=== PATIENT | male | born 1970 | race Caucasian/White ===

== ENCOUNTER 2019-10-01 07:48 | Outpatient (CLI) | payer OTHER, SELFPAY ==
--- NOTE | 2019-10-01 08:19 | ECG_ITS ---
Measurements Intervals [place] Rate: 77 P: 31 GA: 154 QRS: 56 QRSD: 94 T: 14 QT: 370 QTc: 420 Interpretive Statements SINUS RHYTHM BASELINE ARTIFACT- V1 NORMAL ECG Electronically Signed On 10-01-2019 13:56:00 CDT by Drew Zaman D.O.
== END 2019-10-01 07:49 | disposition home or self-care (01) ==
PROVIDERS: PCP Family Medicine; Visit Provider Family Medicine
DX: I10 Essential (primary) hypertension (principal)
CPT/HCPCS: 93005

== ENCOUNTER 2020-01-24 17:34 | Outpatient (CLI) | payer OTHER, SELFPAY ==
--- NOTE | ~2020-01-24 | CT_ITS ---
EXAMINATION: CT abdomen pelvis wo con DATE: 01/24/2020 18:03 INDICATION: Left renal stone TECHNIQUE: Computed tomography (CT) of the abdomen and pelvis was performed without intravenous contr ast. The dose-length product was 370.10 mGy-cm. Automated exposure control and iterative reconstructi on technique were employed. COMPARISON: CT dated 01/18/2019 FINDINGS: Lung bases are unremarkable. Heart size normal. No significant pleural or pericardial effus ion. There is a 1.3 x 0.8 cm left UPJ stone with mild hydronephrosis. There are nonobstructing left renal stones in the lower pole. The liver, spleen, pancreas, adrenal glands are unremarkable. There is a pu nctate nonobstructing right renal stone. Gallbladder is present. Nonobstructive bowel gas pattern. No rmal appendix. Colonic diverticulosis without evidence for diverticulitis. No free air or free fluid. IMPRESSION: 1. Left UPJ stone measuring 1.3 cm craniocaudal x0.8 cm transverse causing mild left hydronephrosis. 2: Nonobstructing bilateral nephrolithiasis. Reviewed, dictated and finalized at location A.
== END 2020-01-24 17:35 | disposition home or self-care (01) ==
PROVIDERS: PCP Family Medicine; Visit Provider Urology
DX: N20.0 Calculus of kidney (principal)
CPT/HCPCS: 74176

== ENCOUNTER 2020-02-07 16:56 | Outpatient (CLI) | payer OTHER, SELFPAY ==
[2020-02-07 17:43] LABS: Prothrombin Time 13.3 Seconds (11.1-14.7)
[2020-02-07 17:44] LABS: Partial Thromboplastin Time 24.5 SECONDS (22.3-36.8)
== END 2020-02-07 16:57 | disposition home or self-care (01) ==
PROVIDERS: PCP Family Medicine; Visit Provider Urology
DX: N20.0 Calculus of kidney (principal)
CPT/HCPCS: 36415; 85610; 85730; 87086

== ENCOUNTER 2020-02-09 00:55 | Outpatient (CLI) | payer OTHER, SELFPAY ==
[2020-02-09 18:42] LABS: SARS-CoV-2 RNA PCR Negative
== END 2020-02-09 00:56 | disposition home or self-care (01) ==
LOC: ANHCOVIDDT 00:55
PROVIDERS: PCP Family Medicine; Visit Provider Urology
DX: Z01.812 Encounter for preprocedural laboratory examination (principal); Z20.828 Contact with and (suspected) exposure to other viral communicable diseases
CPT/HCPCS: 87635; C9803; U0003

== ENCOUNTER 2020-02-11 01:26 | Day surgery (SDC) | payer OTHER, SELFPAY ==
[2020-01-27 14:14] VITALS: BMI 29.1
--- NOTE | 2020-02-08 15:36 | PM.IMHP ---
H&P: HPI History of Present Illness Date/Time: 02/08/20 15:36 Chief complaint: left kidney stone Narrative: Jose Carlos Oliva is a 49 year old male with a remote history of urolithiasis recently developed left renal colic. CT imaging revealed a 13 by 8 mm left renal calculus. After discussion of therapeutic options he elected for cysto with left stent placement and left ESWL. He is aware of this risk of this procedure including, but not limited to, injury to the left kidney, failure to completely treat the stone, postoperative pain and hematuria. Review of Systems Cardiovascular: Cardiovascular: Denies chest pain, Denies lightheadedness, Denies palpitations and Denies dyspnea Respiratory: Respiratory: Denies dyspnea Gastrointestinal: Gastrointestinal: Denies diarrhea, Denies nausea and Denies vomiting Genitourinary: Genitourinary: Denies hematuria and Denies dysuria Endocrine: Endocrine: Denies palpitations PMFSH Past Medical History Medical History Colon cancer screening Diverticulosis Eczema Encounter for prostate cancer screening Encounter for wellness examination in adult Essential (primary) hypertension Fungal infection of toenail Hypothyroidism, unspecified Kidney stones Kidney stones Lateral epicondylitis of both elbows Microscopic hematuria Migraines Mixed hyperlipidemia Ureteral stone Surgical History Surgical History H/O umbilical hernia repair (~2018) H/O vasectomy (~2019) Family History Family History Mother Family history of malignant neoplasm of breast in first degree relative Asthma Macular degeneration Father Diabetes mellitus Heart disease Grandparent Cerebrovascular accident Cancer Sibling Asthma Diverticulosis Other Family history of malignant neoplasm Social History Social History Smoking status: Never smoker Alcohol intake: current Drinks per week: 1 Spiritual care concerns: No Meds Home Medications and Allergies Home Medications Medication Instructions Recorded Confirmed Type ketorolac 10 mg tablet 10 mg PO Q6H PRN 09/08/19 01/27/20 History meloxicam 15 mg tablet 15 mg PO DAILY PRN #30 tablet 09/08/19 01/27/20 Rx tamsulosin 0.4 mg capsule 0.4 mg PO DAILY #30 cap 09/08/19 01/27/20 Rx levothyroxine 75 mcg tablet 75 mcg PO DAILY #30 tablet 09/22/19 01/27/20 Rx lisinopril 20 mg tablet 10 mg PO DAILY #30 tablet 10/05/19 01/27/20 Rx terbinafine HCl 250 mg tablet 250 mg PO .COMPLEX #90 tablet 10/05/19 01/27/20 Rx Allergies Allergy/AdvReac Type Severity Reaction Status Date / Time Penicillins Allergy Unknown Rash Verified 01/27/20 14:15 hydrocodone AdvReac Mild n/v, rash Verified 01/27/20 14:15 Exam Const: General: no acute distress Resp: Effort & Inspection: normal respiratory effort GI: Inspection: non-distended GI Palp: No abdominal tenderness and No Guarding due to palpation present (GI) Auscultation: normal bowel sounds Assessment and Plan Assessment and plan (1) Left renal stone: Code(s): N20.0 - Calculus of kidney Status: Acute Assessment and Plan: Left ESWL
[2020-02-11] VITALS (7 sets, daily range): BP systolic 114–138; BP diastolic 76–93; PULSE 70–90; RESP 10–18; TEMP 36.1–36.6; O2SAT 98–100
--- NOTE | ~2020-02-11 | CT_ITS ---
EXAMINATION: CT abdomen pelvis wo con DATE: 02/11/2020 08:53 INDICATION: TECHNIQUE: Computed tomography (CT) of the abdomen and pelvis was performed without intravenous contr ast. Automated exposure control and iterative reconstruction technique were employed. Exam dose: 302 .24 mGy-cm total exam DLP. COMPARISON: None. FINDINGS: The lung bases are clear. Normal heart size. No pericardial or pleural effusion. The liver, spleen, pancreas, adrenal glands are unremarkable. No renal space occupying mass lesion is evident. There is a 5.3 mm wide by 10.5 mm vertical dimension left ureteral calculus in the distal left ureter to approximately S2 level, with moderately prominent proximal left hydroureteronephrosis. There are multiple stones in the lower pole of the left kidney. There are 2 pinpoint nonobstructing upper pole right renal calcifications. No right ureteral calculus or right-sided hydroureteronephrosis. The urinary bladder is unremarkable. There are numerous diverticula of the colon; no CT evidence of diverticulitis. Normal appendix. No cara wel obstruction, bowel wall thickening, pneumatosis or intraperitoneal free air. Included skeletal structures are unremarkable. IMPRESSION: 5.3 x 10 x 5 mm obstructing distal left ureteral calculus Bilateral nonobstructive nephrolithiasis Diverticulosis of the colon Reviewed, dictated and finalized at Location A. Reviewed, dictated and finalized at location A.
--- NOTE | ~2020-02-11 | XR_ITS ---
EXAMINATION: XR abdomen/kub 1V DATE: 02/11/2020 07:37 INDICATION: Left kidney stones. TECHNIQUE: A supine view of the abdomen on 2 radiographs was obtained. COMPARISON: CT abdomen and pelvis 01/24/2020 FINDINGS: There are no dilated loops of bowel. There is 6 mm and 4 mm stones in left kidney lower kerline e. IMPRESSION: 1. Left kidney stones. Reviewed, dictated and finalized at location B. IMPRESSION: 1. Left kidney stones.
--- NOTE | 2020-02-11 06:54 | WPDHPUPDATE1 ---
History and Physical Update Update Date/Time: 02/11/20 06:54 History and Physical has been reviewed, including an updated exam of the patient. There are NO changes in the patient's condition. Risks, benefits, and alternatives have been discussed and questions answered. Patient agrees to proceed with procedure.
[2020-02-11] MEDS: LACTATED RINGERS 1,000 ML 30 ML IV CONT ×3 (08:15→10:16)
--- NOTE | 2020-02-11 08:56 | WPDANESEPPF ---
Anes - Initial Pre Proc Eval Procedure: Operation Date: 02/11/20 09:30 Proposed Procedures p Left Extracorporeal Shock Wave Lithotripsy - Kirby Lynch MD Date/Time: 02/11/20 08:56 Surgeon: Kirby Lynch MD Pre Op Diagnosis: left kidney stone Patient Data Age: 49 Gender: M Height: 6 ft Weight: 99 kg Last Vital Signs Temp 36.6 C 02/11/20 08:00 Pulse 74 02/11/20 08:00 Resp 18 02/11/20 08:00 BP 126/87 02/11/20 08:00 Pulse Ox 100 02/11/20 08:00 Allergies Allergy/AdvReac Type Severity Reaction Status Date / Time Penicillins Allergy Unknown Rash Verified 02/11/20 08:33 hydrocodone AdvReac Mild n/v, rash Verified 02/11/20 08:33 Home Medications Medication Instructions Recorded Confirmed Type ketorolac 10 mg tablet 10 mg PO Q6H PRN 09/08/19 02/11/20 History meloxicam 15 mg tablet 15 mg PO DAILY PRN #30 tablet 09/08/19 02/11/20 Rx tamsulosin 0.4 mg capsule 0.4 mg PO DAILY #30 cap 09/08/19 02/11/20 Rx levothyroxine 75 mcg tablet 75 mcg PO DAILY #30 tablet 09/22/19 02/11/20 Rx lisinopril 20 mg tablet 10 mg PO DAILY #30 tablet 10/05/19 02/11/20 Rx terbinafine HCl 250 mg tablet 250 mg PO .COMPLEX #90 tablet 10/05/19 02/11/20 Rx Patient hx anesthesia problems: none Family hx anesthesia problems: none PMFSH Past Medical History Medical History Colon cancer screening Diverticulosis Eczema Encounter for prostate cancer screening Encounter for wellness examination in adult Essential (primary) hypertension Fungal infection of toenail Hypothyroidism, unspecified Kidney stones Kidney stones Lateral epicondylitis of both elbows Microscopic hematuria Migraines Mixed hyperlipidemia Ureteral stone Surgical History Surgical History H/O umbilical hernia repair (~2018) H/O vasectomy (~2018) Family History Family History Mother Family history of malignant neoplasm of breast in first degree relative Asthma Macular degeneration Father Diabetes mellitus Heart disease Grandparent Cerebrovascular accident Cancer Sibling Asthma Diverticulosis Other Family history of malignant neoplasm Social History Social History Smoking status: Never smoker Alcohol intake: current Drinks per week: 1 Spiritual care concerns: No Anes - Eval Final PreProcedure Day of Procedure 02/11/20 08:56 Patient weight: overweight Heart: regular rate and rhythm Lungs: clear to auscultation Airway: Mallampati scale class 1 Neurological: alert and oriented Last oral intake: >/= 8 hours ASA classification: II Emergent: no Anesthetic plan: proceed Anesthesia type and monitoring: general LMA and standard monitoring Informed Consent: The patient's anesthetic plan and its attendant risks and benefits were discussed with the patient/family/POA. Questions were solicited and answers provided to the satisfaction of the patient/family/POA.
[2020-02-11] MEDS: levoFLOXacin 500 MG/D5W 100 ML 500 MG/100 ML BAG 100 MG IVPB (09:29)
[2020-02-11] MEDS: KETOROLAC 30 MG/ML VIAL (*BKC) IV PUSH (10:07)
--- NOTE | 2020-02-11 10:14 | P.OP_ITS ---
Procedure Note - Detailed Date of procedure: 02/11/20 Pre-op diagnosis: left kidney stone Post-op diagnosis: same Procedure performed: 1. Cystoscopy, left retrograde pyelography. 2. Left ESWL. Description of procedure: The patient was brought to the operative suite where he was placed in the supine position on the Dornier lithotripter table. Flexible cystoscopy was undertaken with a 16F flexible cystoscopy. There were no urethral strictures. The prostatic uretehral estimated lenght was 1.5cm. There was no obstruction of the prostatic urethra with no median lobe enlargement. The bladder mucosa was normal and there was a single, orthotopic ureteral orifice bilaterally. A 0.035 glidewire was advanced into the left renal pelvis under fluoroscopy. An angiographic catheter was used to inject contrast in a retrograde fashion so as to outline the 7 mm stone overlying her the sacrum.. Thefocal point of the lithotriptor on a 7mm left mid-ureteral calculus. A total of 3000 shocks were delivered at a power setting of 5. The p atient tolerated the procedure well and was taken to the recovery room in good condition. Anesthesia: GLMA Surgeon: Kirby Lynch MD Estimated blood loss (mL): 0 Drains: No Packing: No Pathology: none sent Complications: No immediate complications Condition: stable Disposition: PACU
== END 2020-02-11 12:05 | disposition home or self-care (01) ==
PROVIDERS: PCP Family Medicine; Visit Provider Urology
PROC: (CPT 50590; principal; 2020-02-11 09:30)
DX: N20.1 Calculus of ureter (principal); I10 Essential (primary) hypertension; E03.9 Hypothyroidism, unspecified; E66.3 Overweight; Z68.29 Body mass index [BMI] 29.0-29.9, adult; Z88.0 Allergy status to penicillin; Z79.1 Long term (current) use of non-steroidal anti-inflammatories (NSAID); Z79.899 Other long term (current) drug therapy
CPT/HCPCS: 50590; 52000; 74018; 74176; A9270; C1769; C1887; J0131; J1100; J1885; J1956; J2250; J2405; J2704; J3010; J7030; J7120; Q9966

== ENCOUNTER 2020-02-21 11:30 | Outpatient (CLI) | payer OTHER, SELFPAY ==
--- NOTE | ~2020-02-21 | XR_ITS ---
XR abdomen/kub 1V 02/21/2020 11:53 INDICATION: Kidney stone TECHNIQUE: KUB COMPARISON: 02/11/2012 FINDINGS: Bowel gas pattern is normal. Moderate colonic fecal loading. There is no evidence of free a ir, mass, organomegaly, ascites or obstruction. No abnormal calculi are seen. The bones appear inta ct. IMPRESSION: 1: No acute abdominal abnormality identified. Reviewed, dictated and finalized at location A.
== END 2020-02-21 11:31 | disposition home or self-care (01) ==
LOC: ANHIMG 11:38
PROVIDERS: PCP Family Medicine; Visit Provider Urology
DX: N20.0 Calculus of kidney (principal)
CPT/HCPCS: 74018

== ENCOUNTER 2020-12-13 15:11 | Outpatient (CLI) | payer OTHER, SELFPAY ==
--- NOTE | ~2020-12-13 | CT_ITS ---
EXAMINATION: CT abdomen pelvis wo con EXAM DATE: 12/13/2020 16:11 INDICATION: Left flank pain. Nausea, vomiting. TECHNIQUE: Spiral CT of the abdomen and pelvis was performed without contrast. Axial, coronal and sag ittal images were reviewed. The dose-length product (DLP) for this examination was 427.63 mGy-cm. T he exposure was tailored according to patient size (auto mA exposure control), and iterative reconstr uction (ASIR) was used as additional dose reduction technique. Comparison is made to prior examinatio n from 02/11/2020. FINDINGS: There is a large left ureteropelvic junction stone measuring 11 x 7 x 16 mm, with moderate left-sided hydronephrosis only mild right nephric fat stranding. Other large left calyceal stones, or single connected stone casting the inferior moiety. No right nephrolithiasis. The prostate is unrem arkable. The bladder is unremarkable. The liver, spleen, adrenal glands and pancreas are unremarkable. The gallbladder is contracted but o therwise unremarkable. There is no retroperitoneal or pelvic lymphadenopathy. There is mild scatte red arteriosclerotic disease. The appendix is normal. There is moderate sigmoid, otherwise mild scattered colonic diverticulosis. There is no adjacent inflammatory change to suggest diverticulitis. The stomach and small bowel are u nremarkable. There is moderate amount of colonic stool. No free intraperitoneal gas. The heart i s normal in size. There are no pericardial or pleural effusions. The lung bases are unremarkable. There are no osteoblastic or osteolytic lesions identified. Compared to prior study, the mid left ureteral stone has passed. There has been increase in the stone burden of the left kidney compared to that exam. IMPRESSION: 1. Large left UPJ stone, moderate hydronephrosis. 2. Enlarged left nephrolithiasis. Reviewed, dictated and finalized at location B.
--- NOTE | ~2020-12-13 | XR_ITS ---
EXAMINATION: XR abdomen/kub 1V EXAM DATE: 12/13/2020 15:51 INDICATION: Left flank pain. History of kidney stones. TECHNIQUE: Frontal projection of the upper abdomen, frontal projection lower abdomen/pelvis for inter pretation. Comparison is made to prior examination from 02/21/2020. FINDINGS: There is moderate amount of colonic stool and gas obscuring the left renal contour. The le ft UPJ and casting left inferior calyceal stones are relatively low in density, but are identified an d indicated. Nonobstructive bowel gas pattern. There are mild bony degenerative changes. There is no organomegaly. IMPRESSION: Left UPJ, inferior moiety stones identified, indicated. Reviewed, dictated and finalized at location B.
== END 2020-12-13 15:12 | disposition home or self-care (01) ==
PROVIDERS: PCP Family Medicine; Visit Provider Nurse Practitioner Adult Health
DX: R10.9 Unspecified abdominal pain (principal); N20.2 Calculus of kidney with calculus of ureter
CPT/HCPCS: 74018; 74176

== ENCOUNTER 2020-12-15 00:23 | Day surgery (SDC) | payer OTHER, SELFPAY ==
[2020-12-14 16:31] VITALS: BMI 31.4
[2020-12-15] VITALS (7 sets, daily range): BP systolic 117–148; BP diastolic 80–90; PULSE 80–91; RESP 12–20; TEMP 36.6–36.8; O2SAT 94–99; BMI 31.8
--- NOTE | ~2020-12-15 | XR_ITS ---
XR abdomen/kub 1V 12/15/2020 08:47 INDICATION: ESWL. TECHNIQUE: KUB COMPARISON: Comparison to multiple prior studies sequentially, with oldest reviewed study dated 01/19. FINDINGS: Bowel gas pattern is normal. There is no evidence of free air, mass, organomegaly, ascites or obstruction. There are multiple clustered lower pole stones in the left kidney. The bones appear intact. IMPRESSION: 1: Left nephrolithiasis. Reviewed, dictated and finalized at location A. IMPRESSION: 1: Left nephrolithiasis.
--- NOTE | 2020-12-15 07:41 | ECG_ITS ---
Measurements Intervals [place] Rate: 84 P: 31 PA: 171 QRS: 45 QRSD: 95 T: 22 QT: 347 QTc: 411 Interpretive Statements SINUS RHYTHM NONSPECIFIC T-WAVE ABNORMALITY- INFERIOR LEADS BASELINE ARTIFACT- II, III BORDERLINE ECG Electronically Signed On 12-15-2020 10:43:36 CDT by Drew Zaman D.O.
[2020-12-15] MEDS: LACTATED RINGERS 1,000 ML 30 ML IV CONT ×2 (09:24→13:48)
--- NOTE | 2020-12-15 09:40 | SUR.PREOP ---
0940- Notified patient and procedure will be delayed. and patient verbalized understanding.
--- NOTE | 2020-12-15 09:43 | WPDANESEPPF ---
Anes - Initial Pre Proc Eval Procedure: Operation Date: 12/15/20 10:30 Proposed Procedures p Left Ureteral Extracorporeal Shock Wave Lithotripsy - Kirby Lynch MD Date/Time: 12/15/20 09:43 Surgeon: Kirby Lynch MD Pre Op Diagnosis: left ureteral stone Patient Data Age: 49 Gender: M Height: 1.8 m Weight: 103.7 kg Last Vital Signs Temp 36.8 C 12/15/20 09:25 Pulse 91 12/15/20 09:25 Resp 20 12/15/20 09:25 BP 132/89 12/15/20 09:25 Pulse Ox 99 12/15/20 09:25 Allergies Allergy/AdvReac Type Severity Reaction Status Date / Time Penicillins Allergy Mild Rash Verified 12/15/20 08:56 Home Medications Medication Instructions Recorded Confirmed Type meloxicam 15 mg tablet 15 mg PO DAILY PRN #30 tablet 03/07/20 12/15/20 Rx levothyroxine 75 mcg tablet 75 mcg PO DAILY #90 tablet 04/10/20 12/14/20 Rx tamsulosin 0.4 mg capsule 0.4 mg PO DAILY #90 cap 04/10/20 12/15/20 Rx losartan 50 mg tablet 50 mg PO DAILY #90 tablet 06/05/20 12/15/20 Rx doxycycline hyclate 100 mg PO BID 12/14/20 12/15/20 History Laboratory Tests 12/15/20 09:07 PT Pending INR Pending APTT Pending Patient hx anesthesia problems: none Family hx anesthesia problems: none PMFSH Past Medical History Medical History (Updated 05/31/20 @ 07:40 by Tavo Lechuga MD) Colon cancer screening COVID-19 Diverticulosis Eczema Encounter for prostate cancer screening Encounter for wellness examination in adult Essential (primary) hypertension Fungal infection of toenail Hypothyroidism, unspecified Kidney stones Kidney stones Lateral epicondylitis of both elbows Microscopic hematuria Migraines Mixed hyperlipidemia Seasonal allergic rhinitis Ureteral stone Surgical History Surgical History H/O umbilical hernia repair (~2018) H/O vasectomy (~2018) Family History Family History Mother Family history of malignant neoplasm of breast in first degree relative Asthma Macular degeneration Father Diabetes mellitus Heart disease Grandparent Cerebrovascular accident Cancer Sibling Asthma Diverticulosis Other Family history of malignant neoplasm Social History Social History Smoking status: Never smoker Alcohol intake: current Drinks per week: 1 Substance use: never Substance use type: does not use Living arrangements: with family Spiritual care concerns: No Anes - Eval Final PreProcedure Day of Procedure 12/15/20 09:43 Patient weight: overweight Heart: regular rate and rhythm Lungs: clear to auscultation and normal air movement Airway: Mallampati scale class II Neurological: alert and oriented Last oral intake: >/= 8 hours ASA classification: II Emergent: no Anesthetic plan: proceed Anesthesia type and monitoring: general LMA Informed Consent: The patient's anesthetic plan and its attendant risks and benefits were discussed with the patient/family/POA. Questions were solicited and answers provided to the satisfaction of the patient/family/POA.
[2020-12-15 09:44] LABS: Prothrombin Time 13.3 Seconds (11.1-14.7)
[2020-12-15 09:45] LABS: Partial Thromboplastin Time 26.4 SECONDS (22.3-36.8)
--- NOTE | 2020-12-15 12:40 | WPDHPUPDATE1 ---
History and Physical Update Update Date/Time: 12/15/20 12:40 History and Physical has been reviewed, including an updated exam of the patient. There are NO changes in the patient's condition. Risks, benefits, and alternatives have been discussed and questions answered. Patient agrees to proceed with procedure.
[2020-12-15] MEDS: ceFAZolin 2 GM/D5W 50 ML 2 GM/50 ML BAG IVPB (13:07)
--- NOTE | 2020-12-15 13:40 | W.PM.PROC2 ---
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 10 x 11 mm left renal pelvic stone 2. Partial staghorn calculus lower pole calyx Description of Procedure The patient was brought to the operative suite where he was placed in the supine position on the Dornier lithotripsy table. The focal point of the lithotripter was placed at a [id number] left renal pelvic calculus. A total of 2500 shocks were delivered at a power setting of 4. There appeared to be good fragmentation of the stone. The patient tolerated the procedure well and was taken to the recovery room in good condition. We did not treat the partial staghorn stone in his left lower pole. Implants None Estimated Blood Loss 0 Drains No Packing No Pathology none sent Complications No immediate complications Condition stable Disposition PACU
== END 2020-12-15 14:56 | disposition home or self-care (01) ==
PROVIDERS: PCP Family Medicine; Visit Provider Urology
PROC: (CPT 50590; principal; 2020-12-15 10:30)
DX: N20.0 Calculus of kidney (principal); E03.9 Hypothyroidism, unspecified; Z86.16 Personal history of COVID-19; K57.90 Diverticulosis of intestine, part unspecified, without perforation or abscess without bleeding; M77.12 Lateral epicondylitis, left elbow; M77.11 Lateral epicondylitis, right elbow; R31.29 Other microscopic hematuria; E78.2 Mixed hyperlipidemia; R11.2 Nausea with vomiting, unspecified; I10 Essential (primary) hypertension
CPT/HCPCS: 50590; 36415; 74018; 85610; 85730; 93005; J0690; J1100; J2250; J2405; J2704; J3010; J7120

== ENCOUNTER 2020-12-19 16:06 | Outpatient (CLI) | payer OTHER, SELFPAY ==
--- NOTE | ~2020-12-19 | XR_ITS ---
EXAMINATION: XR chest 2V 12/19/2020 16:27 INDICATION: Acute bronchitis PROCEDURE: PA and lateral views of the chest COMPARISON: No prior studies for comparison. FINDINGS: The lungs are clear. The cardiomediastinal silhouette is within normal limits. There are no pleural effusions. There is no pneumothorax suspected. IMPRESSION: 1: NO ACUTE CARDIOPULMONARY DISEASE. Reviewed, dictated and finalized at location B.
--- NOTE | ~2020-12-19 | XR_ITS ---
EXAMINATION: XR abdomen/kub 1V DATE: 12/19/2020 16:27 INDICATION: Left flank pain. TECHNIQUE: A supine view of the abdomen on 2 radiographs was obtained. COMPARISON: CT abdomen and pelvis 12/14/2019 FINDINGS: There are no dilated loops of bowel. Faintly visible are stones in the left kidney lower po le and in the proximal left ureter. The stone in proximal left ureter measures 17 x 7 mm. IMPRESSION: 1. Stones in the left kidney and proximal left ureter. Reviewed, dictated and finalized at location A.
== END 2020-12-19 16:07 | disposition home or self-care (01) ==
LOC: ANHIMG 16:09
PROVIDERS: PCP Family Medicine; Visit Provider Nurse Practitioner Adult Health
DX: R10.9 Unspecified abdominal pain (principal); J20.9 Acute bronchitis, unspecified; N20.2 Calculus of kidney with calculus of ureter
CPT/HCPCS: 71046; 74018

== ENCOUNTER 2021-01-09 13:10 | Outpatient (CLI) | payer OTHER, SELFPAY ==
--- NOTE | ~2021-01-09 | XR_ITS ---
EXAMINATION: XR abdomen/kub 1V EXAM DATE: 01/09/2021 13:28 INDICATION: BI renal stones . TECHNIQUE: Frontal projection of the upper abdomen, frontal projection lower abdomen/pelvis for inter pretation. Comparison is made to prior examination from 11/19/2023 . FINDINGS: Probably identification of some relatively low density but sizable stones projecting over t he lower pole of the left kidney. Nonobstructive bowel gas pattern. There is no organomegaly. Mild d egenerative IMPRESSION: Probable left nephrolithiasis. Reviewed, dictated and finalized at location A.
[2021-01-09 14:32] LABS: Anion Gap 7 mmol/L (8-16); Blood Urea Nitrogen 17 mg/dL (9-20); Calcium 9.5 mg/dL (8.4-10.2); Carbon Dioxide 26 mmol/L (22-30); Chloride 103 mmol/L (98-107); Estimated Glomerular Filt Rate 53; Glucose 91 mg/dL (75-110); Potassium 4.2 mmol/L (3.4-5.0); Sodium 136 mmol/L (137-145)
[2021-01-09 14:42] LABS: Parathyroid Intact 56.8 pg/mL (7.5-53.5)
== END 2021-01-09 13:11 | disposition home or self-care (01) ==
LOC: ANHIMG 13:13
PROVIDERS: PCP Family Medicine; Visit Provider Urology
DX: N20.0 Calculus of kidney (principal)
CPT/HCPCS: 36415; 74018; 80048; 83970

== ENCOUNTER 2021-01-12 01:36 | Day surgery (SDC) | payer OTHER, SELFPAY ==
[2021-01-10 14:43] VITALS: BMI 31.6
--- NOTE | ~2021-01-12 | XR_ITS ---
EXAMINATION: XR abdomen/kub 1V DATE: 01/12/2021 07:43 INDICATION: Kidney stone. TECHNIQUE: A supine view of the abdomen on 2 radiographs was obtained. COMPARISON: Abdomen radiographs 01/09/2021, CT abdomen and pelvis 12/13/2020 FINDINGS: There are no dilated loops of bowel. The kidneys are obscured by bowel. There is a cluster of stones in left kidney lower pole measuring up to 10 mm. A 7 mm density on the left at L3-L4 may be a ureteral stone. IMPRESSION: 1. Stones in left kidney. 2. 7 mm density on the left at L3-L4 that may be a proximal ureteral stone. Reviewed, dictated and finalized at location A.
[2021-01-12 07:55] VITALS: BP 153/95; PULSE 83; RESP 16; TEMP 36.6; O2SAT 99; BMI 31.8
--- NOTE | 2021-01-12 09:43 | SUR.PREOP ---
0943- Patient's procedure cancelled due to ESWL machine being broken, procedure to be performed at outside facility. Patient discharged home at this time.
== END 2021-01-12 09:43 | disposition home or self-care (01) ==
PROVIDERS: PCP Family Medicine; Visit Provider Urology
PROC: (CPT 50590; principal; 2021-01-12 09:30)
DX: N20.0 Calculus of kidney (principal); Z53.8 Procedure and treatment not carried out for other reasons
CPT/HCPCS: 74018; 99212; G0463

== ENCOUNTER 2021-01-30 13:09 | Outpatient (CLI) | payer OTHER, SELFPAY ==
--- NOTE | ~2021-01-30 | XR_ITS ---
EXAMINATION: XR abdomen/kub 1V DATE: 01/30/2021 13:36 INDICATION: Bilateral kidney stones. TECHNIQUE: A supine view of the abdomen on 2 radiographs was obtained. COMPARISON: CT abdomen and pelvis 12/13/2020 FINDINGS: There are no dilated loops of bowel. There are ill-defined stones in left kidney and proxim al left ureter. IMPRESSION: 1. Faintly visualized ill-defined stones in the left kidney and proximal left ureter. Reviewed, dictated and finalized at location A. IMPRESSION: 1. Faintly visualized ill-defined stones in the left kidney and proximal left u reter.
== END 2021-01-30 13:10 | disposition home or self-care (01) ==
LOC: ANHIMG 13:14
PROVIDERS: PCP Family Medicine; Visit Provider Urology
DX: N20.0 Calculus of kidney (principal)
CPT/HCPCS: 74018

== ENCOUNTER 2021-02-06 15:57 | Outpatient (CLI) | payer OTHER, SELFPAY ==
--- NOTE | ~2021-02-06 | CT_ITS ---
EXAMINATION: CT abdomen pelvis wo con DATE: 02/06/2021 16:35 INDICATION: Left flank pain TECHNIQUE: Computed tomography (CT) of the abdomen and pelvis was performed without intravenous contr ast. The dose-length product (DLP) was 405.41 mGy-cm. Automated exposure control and iterative recons truction technique were employed. COMPARISON: 12/13/2020 FINDINGS: The lung bases are clear. The heart size is normal. The liver, spleen, pancreas, gallbladde r, and adrenal glands are normal. The right kidney is unremarkable. There are nonobstructing stones l eft kidney which measure up to 6 mm. Mild left hydroureteronephrosis without obstructing stone identi fied. No stones are present urinary bladder. No pathologically enlarged abdominal or pelvic lymph nod es are identified. There is no free intraperitoneal gas or evidence of bowel obstruction. The appendi x is normal. Colonic diverticulosis is present without evidence of diverticulitis. There is mild lumb ar spondylosis. IMPRESSION: 1. Mild left hydroureteronephrosis which could reflect recent passage of stone although no ureteral o r bladder stones are seen. 2. Nonobstructing left nephrolithiasis. Reviewed, dictated and finalized at location B. IMPRESSION: 1. Mild left hydroureteronephrosis which could reflect recent passage of stone although no ureteral or bladder stones are seen. 2. Nonobstructing left nephrolithiasis.
== END 2021-02-06 15:58 | disposition home or self-care (01) ==
LOC: ANHIMG 16:00
PROVIDERS: PCP Family Medicine; Visit Provider Urology
DX: R10.9 Unspecified abdominal pain (principal); N20.0 Calculus of kidney
CPT/HCPCS: 74176

== ENCOUNTER 2021-05-26 07:20 | Outpatient (CLI) | payer OTHER, SELFPAY ==
--- NOTE | ~2021-05-26 | XR_ITS ---
XR abdomen/kub 1V 05/26/2021 07:37 INDICATION: Renal stone. TECHNIQUE: KUB COMPARISON: 01/30/2021 FINDINGS: Bowel gas pattern is normal. There is no evidence of free air, mass, organomegaly, ascites or obstruction. No abnormal calculi are seen. The bones appear intact. IMPRESSION: 1: No acute abdominal abnormality identified. Reviewed, dictated and finalized at location A. RACT LAW SPECIALIST
== END 2021-05-26 07:21 | disposition home or self-care (01) ==
PROVIDERS: PCP Family Medicine; Visit Provider Urology
DX: R10.9 Unspecified abdominal pain (principal)
CPT/HCPCS: 74018

== ENCOUNTER 2022-07-04 12:50 | Outpatient (CLI) | payer OTHER, SELFPAY ==
--- NOTE | ~2022-07-04 | CT_ITS ---
Non-contrast CT scan of the Abdomen and Pelvis Clinical indication: Left flank pain Technique: 5 mm axial scans were obtained through the abdomen and pelvis without intravenous or oral contrast. Dose reduction technique was used on this scan by utilizing automated exposure control and iterative reconstruction technique. The dose-length product (DLP) was 738.93 mGy-cm. COMPARISON: 02/06/2021 Findings: Images through the lung bases reveal no abnormalities. There is a 7 mm mid left ureteral stone (axial image 151), with mild left hydroureteronephrosis to th is level. Hounsfield units of the stomach are 560. Additional nonobstructing left renal stones are pr esent. No right renal or right ureteral stone. No right hydronephrosis. The liver, spleen, pancreas, gallbladder, and adrenals appear normal. There is no aortic aneurysm. There is no evidence of bowel obstruction. Sigmoid diverticulosis noted. Normal appendix. Images through the pelvis were performed. There is no evidence of ascites or lymphadenopathy. Urinary bladder unremarkable. Prostate gland and seminal vesicles are unremarkable. Impression: 7 mm mid left ureteral stone with mild left hydroureteronephrosis. Additional nonobstructing left renal stones. Reviewed, dictated and finalized at [facility]. RAM DEVELOPER Impression: 7 mm mid left ureteral stone with mild left hydroureteronephrosis. Additional nonobstructing left renal stones.
--- NOTE | ~2022-07-04 | XR_ITS ---
EXAMINATION: XR abdomen/kub 1V DATE: 07/04/2022 13:03 INDICATION: Left flank pain. TECHNIQUE: A supine view of the abdomen on 2 radiographs was obtained. COMPARISON: Abdomen radiographs 05/26/2021, CT abdomen and pelvis 07/04/2022 FINDINGS: There are no dilated loops of bowel. There is no visible urolithiasis. There is a vascular calcification in left pelvis. IMPRESSION: 1. No visible urolithiasis. Reviewed, dictated and finalized at location A. ASE COORDINATOR IMPRESSION: 1. No visible urolithiasis.
== END 2022-07-04 12:51 | disposition home or self-care (01) ==
PROVIDERS: PCP Family Medicine; Visit Provider Nurse Practitioner
DX: N20.2 Calculus of kidney with calculus of ureter (principal)
CPT/HCPCS: 74018; 74176

== ENCOUNTER 2022-11-07 16:18 | Outpatient (CLI) | payer OTHER, SELFPAY ==
--- NOTE | ~2022-11-07 | XR_ITS ---
XR abdomen/kub 1V 11/07/2022 16:33 INDICATION: Left flank pain TECHNIQUE: KUB COMPARISON: 07/04/2022 FINDINGS: Bowel gas pattern is normal. There is no evidence of free air, mass, organomegaly, ascites or obstruction. No abnormal calculi are seen. The bones appear intact. IMPRESSION: 1: No acute abdominal abnormality identified. Reviewed, dictated and finalized at location L.
== END 2022-11-07 16:19 | disposition home or self-care (01) ==
LOC: ANHIMG 16:20
PROVIDERS: PCP Family Medicine; Visit Provider Nurse Practitioner
DX: R10.9 Unspecified abdominal pain (principal)
CPT/HCPCS: 74018

== ENCOUNTER 2023-11-13 14:40 | Outpatient (CLI) | payer OTHER, SELFPAY ==
--- NOTE | ~2023-11-13 | CT_ITS ---
EXAMINATION: CT abdomen pelvis wo con DATE: 11/13/2023 14:50 INDICATION: Bilateral kidney stones. TECHNIQUE: Computed tomography (CT) of the abdomen and pelvis was performed without intravenous contr ast. Automated exposure control and iterative reconstruction technique were employed. The dose-length product was 963.20 mGy-cm. COMPARISON: CT abdomen pelvis 07/04/2022 FINDINGS: The visualized portions of the lung bases demonstrate minimal atelectasis. No pleural effus ion. The heart size is normal. No pericardial effusion. The liver, spleen, pancreas, gallbladder, and adrenal glands are normal. There is a 1 mm stone in right kidney. There are six stones in left kidne y measuring up to 5 mm. There is diverticulosis of the colon without evidence of diverticulitis. Ther e are no dilated loops of bowel. The appendix is normal. There are no pathologically enlarged lymph n odes. There is no free intraperitoneal fluid. There is mild thoracic and lumbar spondylosis. There is mild chronic anterior wedging of multiple thoracic vertebral bodies. IMPRESSION: 1. Nonobstructing bilateral kidney stones. Reviewed, dictated and finalized at location E.
== END 2023-11-13 14:41 ==
LOC: GOSHIMG 14:41
PROVIDERS: PCP Family Medicine; Visit Provider Urology
DX: N20.0 Calculus of kidney (principal)
CPT/HCPCS: 74176